=== PATIENT | female | born 1980 | race Caucasian/White ===

== ENCOUNTER 2016-11-20 23:15 | Emergency (ER) | payer SELFPAY ==
[2016-11-20 23:31] VITALS: BP 123/85; PULSE 77; RESP 16; TEMP 98.1; O2SAT 99
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
== END 2016-11-21 00:50 | disposition home or self-care (01) ==
LOC: C.ER 23:15
DX: Z77.21 Contact with and (suspected) exposure to potentially hazardous body fluids (principal)

== ENCOUNTER 2016-11-25 21:47 | Emergency (ER) | payer SELFPAY ==
[2016-11-25 21:58] VITALS: BP 126/77; PULSE 74; RESP 18; TEMP 98; O2SAT 100
[2016-11-25] MEDS ORDERED: Bacitracin 500 Units/gm Oint Foilpak UD TOP ONE (22:05)
--- NOTE | 2016-11-25 22:05 | C.PDOC ---
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 She reports mild pain to area. Denies any LOC, dizziness, visual changes. Time Seen by Provider: 11/25/16 22:02 Chief Complaint (Nursing): Abnormal Skin Integrity History Per: Patient History/Exam Limitations: no limitations Onset/Duration Of Symptoms: Mins Location Of Injury: Right: Head, Anterior: Head Quality Of Symptoms: Painful Recent travel outside of the [place]: No Past Medical History Reviewed: Historical Data, Nursing Documentation, Vital Signs Vital Signs: Last Vital Signs Temp 98.0 F 11/25/16 21:56 Pulse 74 11/25/16 21:56 Resp 18 11/25/16 21:56 BP 126/77 11/25/16 21:56 Pulse Ox 100 11/26/16 20:26 - Medical History PMH: No Chronic Diseases Surgical History: No Surg Hx Family History: States: Unknown Family Hx - Social History Hx Alcohol Use: No Hx Substance Use: No - Immunization History Hx Tetanus Toxoid Vaccination: Yes Hx Influenza Vaccination: Yes Hx Pneumococcal Vaccination: Yes Review Of Systems Constitutional: Negative for: Weakness Eyes: Negative for: Vision Change Musculoskeletal: Positive for: Other (Head Pain) Neurological: Negative for: Weakness, Numbness, Confusion, Headache, Dizziness, Other (LOC) Physical Exam - Physical Exam Appears: Non-toxic, No Acute Distress Skin: Warm, Dry Head: Normacephalic, No Swelling, Abrasion (1cm superficial abrasion to right frontal scalp, no active bleeding) Eye(s): bilateral: Normal Inspection, PERRL, EOMI Nose: Normal Oral Mucosa: Moist Neck: Normal, Supple Chest: Symmetrical Extremity: Bilateral: Atraumatic, Normal Color And Temperature, Normal ROM Neurological/Psych: Oriented x3, Normal Speech, Other (No focal deficits) ED Course And Treatment O2 Sat by Pulse Oximetry: 100 (Room air) Pulse Ox Interpretation: Normal Medical Decision Making Medical Decision Making: Patient is employee with head injury. Head shows abrasion superficial, not deep , no bleeding. There is no need suture repair. Bacitracin applied to wound. Tylenol PO given for pain. Patient remained alert and oriented in no distress. Disposition Counseled Patient/Family Regarding: Diagnosis, Need For Followup - Disposition Disposition: HOME/ ROUTINE Disposition Time: 22:10 Condition: STABLE Additional Instructions: Keep wound clean and dry may apply antibiotic ointment to area Take Tylenol or Motrin as needed for pain You may follow up with employee health Instructions: Head Injury (ED) - POA Present On Arrival: Falls Or Trauma (minor head injury) - Clinical Impression Clinical Impression: Closed head injury, Scalp abrasion - Scribe Statement The provider has reviewed the documentation as recorded by the Scribhannah Barrientos All medical record entries made by the Bevibhannah were at my direction and personally dictated by me. I have reviewed the chart and agree that the record accurately reflects my personal performance of the history, physical exam, medical decision making, and the department course for this patient. I have also personally directed, reviewed, and agree with the discharge instructions and disposition.
[2016-11-25] MEDS ORDERED: Bacitracin 500 Units/gm Oint Foilpak UD ONE (22:09)
== END 2016-11-25 22:20 | disposition home or self-care (01) ==
LOC: C.ER 21:47
DX: S00.01XA Abrasion of scalp, initial encounter (principal); W22.8XXA Striking against or struck by other objects, initial encounter; Y92.239 Unspecified place in hospital as the place of occurrence of the external cause; Y99.0 Civilian activity done for income or pay

== ENCOUNTER 2017-05-18 20:15 | Emergency (ER) | payer SELFPAY ==
[2017-05-18 20:15] VITALS: BMI 28.8
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
[2017-05-18 20:41] VITALS: BP 126/91; PULSE 77; RESP 18; TEMP 97.5; O2SAT 100
== END 2017-05-18 20:42 | disposition home or self-care (01) ==
LOC: C.ER 20:15
DX: S00.83XA Contusion of other part of head, initial encounter (principal); Y04.2XXA Assault by strike against or bumped into by another person, initial encounter; Y93.F9 Activity, other caregiving; Y92.238 Other place in hospital as the place of occurrence of the external cause; Y99.0 Civilian activity done for income or pay